=== PATIENT | female | born 1975 | race Caucasian/White ===

== ENCOUNTER → 2021-04-09 10:12 | Outpatient (CLI) | payer MEDICAID, SELFPAY ==
[2021-04-09 11:35] LABS: Hematocrit 43.2 % (37-47); Hemoglobin 14.5 g/dL (12.0-15.0); Mean Corp Hgb Conc 33.6 g/dL (32-36); Mean Corpuscular Hgb 30.8 pg (27.0-32.0); Mean Corpuscular Volume 91.7 fL (81-99); Mean Platelet Vol. 10.4 fl (6.2-12.0); Platelet Count 345 K/mm3 (150-450); RBC Distribution Width CV 12.9 % (11.6-14.6); RBC Distribution Width SD 43.4 fl (35.1-43.9); Red Blood Count 4.71 M/mm3 (4.2-5.4); White Blood Count 9.2 K/mm3 (4.4-11.0)
[2021-04-09 12:07] LABS: ALB/GLOB Ratio 0.9 RATIO (0.9-2.4); AST(SGOT) 19 U/L (15-37); Alanine Aminotransfer ALT/SGPT 28 U/L (13-56); Albumin, Serum 3.5 g/dL (3.2-5.0); Alkaline Phosphatase 104 U/L (45-117); Anion Gap 6 (5-15); BUN 19 mg/dL (7-18); BUN/Creat Ratio 25.3 RATIO (10-20); Chloride 109 mmol/L (98-107); Creatinine, Serum 0.75 mg/dL (0.55-1.02); EST Glomerular Filtration Rate 88 mL/min (>60); Est Glom Filt Rate - Afr Amer 106 mL/min (>60); Globulin 3.8 g/dL (2.2-4.2); Glucose 104 mg/dL (74-106); Potassium 3.8 mmol/L (3.5-5.1); Protein, Total 7.3 g/dL (6.4-8.2); Sodium Level 141 mmol/L (136-145); Thyroid Stim Hormone (TSH) 0.84 uIU/mL (0.358-3.74)
== END ==
PROVIDERS: PCP Nurse Practitioner Adult Health; Visit Provider Nurse Practitioner Adult Health
DX: F41.1 Generalized anxiety disorder (principal)
CPT/HCPCS: 36415; 80053; 84443; 85027

== ENCOUNTER 2021-07-13 11:07 | Emergency (ER) | payer OTHER, MEDICAID, SELFPAY ==
[2021-07-13 11:09] VITALS: BP 127/81; PULSE 67; RESP 18; TEMP 36.8; O2SAT 99; BMI 34.4
--- NOTE | 2021-07-13 11:14 | CT_ITS ---
STUDY: CT BRAIN WITHOUT CONTRAST REASON FOR EXAM: Female, 46 years old. Head injury due to a fall. RADIATION DOSAGE (If Supplied By Facility): CTDIvol = ( 44.99 ) mGy, DLP = ( 745.49 ) mGycm TECHNIQUE: Transaxial CT imaging of the brain was performed without administration of intravenous contrast material. Individualized dose optimization techniques were used for this CT. COMPARISON: No relevant priors. FINDINGS: Normal soft tissue structures. Normal calvarium. Normal size ventricles and extra-axial spaces for the patient''s age. Normal white matter tracts of the cerebral hemispheres. Normal basal ganglia and thalami. Normal brainstem. Normal cerebellum. There is no intracranial hemorrhage. There are no findings of an acute ischemic infarction. Normal visualized paranasal sinuses. CT/Brain/Head without Contrast IMPRESSION: Normal unenhanced CT scan of the brain. Electronically Signed: Lenny Tyler MD at 11:44 EST ,
--- NOTE | 2021-07-13 11:32 | EX.ED.GENINJ ---
HPI History of Present Illness Chief Complaint: Head Injury Informant: patient and EMS Onset/Context/Timing Onset: Today (JPTA) Mechanism/Context: Blunt Injury and Slip Location of pain/injuries: - (head) Quality of Pain: Aching (sore) Location: left posterior parietal scalp Current Severity: Moderate Maximum Severity: Moderate Worsened by: palpation Relieved by: leaving alone Associated Symptoms Associated Symptoms: Negative for Parasthesias, Weakness, Loss of function, Inability to ambulate, Loss of consciousness and Amnesia Narrative Narrative: Patient states she was at work and stepped on some boards that had wheels on them, slipping and having a near fall, and in the process hitting her head on a stack of pallets. She did not have loss of consciousness, she did not fall to the ground, she denies any other injuries. She has normal vision. She states she woke up this morning with nausea and her abdomen was bothering her, consistent with her IBS, she states she is still nauseated, and she is now starting to develop a headache due to the injury. She is on no anticoagulants or antiplatelet medications of any kind. No other recent illness. [facility] Medical History IBS (irritable bowel syndrome) Allergy/AdvReac Type Severity Reaction Status Date / Time No Known Allergies Allergy Verified 07/13/21 11:09 Social History Smoking Status: Current every day smoker tobacco type: cigarettes ROS ROS ED Constitutional Constitutional ED: Denies chills or fever(s) Eyes Eyes: Denies change in vision or diplopia ENT ENT ED: Denies rhinorrhea or sore throat Cardiovascular Cardiovascular: Denies chest pain or palpitations Respiratory/Chest Respiratory/Chest: Denies cough or dyspnea Gastrointestinal Gastrointestinal: Reports as per HPI, abdominal pain and nausea; Denies diarrhea or vomiting Genitourinary Genitourinary ED: Denies dysuria or hematuria Musculoskeletal Musculoskeletal: Denies back pain or neck pain Integumentary Denies abscess or rash Neurologic Neurologic: Reports headache(s); Denies paresthesias or weakness Psychiatric Psychiatric: Denies anxiety or suicidal thoughts EXAM Physical Exam Const Vital Signs: 07/13/21 11:09 07/13/21 11:12 Temperature 98.2 F Temperature Source Oral Pulse Rate 67 Respiratory Rate 18 Respiratory Effort Normal Non-Labored Respiratory Depth Normal Respiratory Pattern Normal Blood Pressure 127/81 H Blood Pressure Mean 96 Pulse Ox 99 Oxygen Delivery Method Room Air Positive well nourished, well developed and obese General Appearance ED: well developed and NAD Nutritional Appearance: obese HEENT Reports moist mucous membranes HEENT Narrative: Moderate sized hematoma left posterior parietal scalp without crepitance or depression. Skin intact no laceration. Mildly tender to palpation. No other evidence of trauma. normocephalic Eyes PERRL and EOMs intact bilaterally Neck full ROM and supple Resp normal respiratory effort and clear to auscultation bilaterally Cardio regular rate, regular rhythm and no murmurs GI non-tender and non-distended Auscultation: normoactive bowel sounds Palpation: soft Back/Spine no CVA tenderness General Back: other FROM Extremity normal to inspection General Extremety ED: Negative for edema, pulses abnormal or tenderness General Extremity: Negative for edema or pulses abnormal Neuro oriented x3, CN's II-XII intact bilaterally and no sensory deficits noted [place] Coma Scale: document GCS findings Spontaneous Obeys Commands Oriented 15 Sensorium / Orientation: awake and alert Motor Exam: strength 5/5 throughout Skin no rashes or lesions noted and no wounds MDM MDM MDM Narrative Medical decision making narrative: CT of the head was performed, it is negative for any intracranial injury. She was given Tylenol for headache, Zofran for the nausea that was pre-existing, and she will be discharged with appropriate work restrictions. Radiography Diagnostic Testing: Clinical Impression(s) from Imaging Studies Brain CT 07/13/21 11:14 IMPRESSION: Normal unenhanced CT scan of the brain. Electronically Signed: Lenny Tyler MD at 11:44 EST , Discharge Plan Triage Chief Complaint: Head Injury ED Provider: Moy Jasso Dx/Rx/DC Orders Clinical Impression: Closed head injury, Scalp hematoma Instructions: ED Head Injury (Adult) Stand Alone Forms: Work Status Form Primary Care Provider: Lala Mejia Referrals: [facility] [GROUP OF PHYSICIANS] - 1 Day for another exam Llaa Mejia, [employer] [Primary Care Provider] - Disposition Disposition: Home, Self Care
[2021-07-13] MEDS: Acetaminophen 325 MG Tablet 650 MG PO (11:42)
[2021-07-13] MEDS: Ondansetron ODT 4 MG Tablet 8 MG PO (11:43)
--- NOTE | 2021-07-13 12:50 | ED.RN ---
[facility] FOR [facility]ING
== END 2021-07-13 12:51 | disposition home or self-care (01) ==
PROVIDERS: Emergency Provider Emergency Medicine; PCP Nurse Practitioner Adult Health; Visit Provider Emergency Medicine
DX: S00.03XA Contusion of scalp, initial encounter (principal); F17.210 Nicotine dependence, cigarettes, uncomplicated; E66.9 Obesity, unspecified; Y99.0 Civilian activity done for income or pay; W01.0XXA Fall on same level from slipping, tripping and stumbling without subsequent striking against object, initial encounter
CPT/HCPCS: 70450; 99285